=== PATIENT | female | born 1965 | race Caucasian/White ===

== ENCOUNTER 2017-05-04 11:24 | Emergency (ER) | payer SELFPAY ==
[~2017-05-04] VITALS: Ht 165.1 cm; Wt 69.1 kg
[~2017-05-04 11:24] MED LIST: VENL75TA91
[2017-05-04 11:25] VITALS: BP 160/84; PULSE 139; RESP 20; TEMP 103.1; O2SAT 98
--- NOTE | 2017-05-04 11:43 | PD ---
HPI Chief Complaint: Complaint Time Seen by Provider: 11:33 Travel History International Travel<30 days: No Contact w/Intl Traveler<30days: No Traveled to known affect area: No History of Present Illness HPI 52 YO F presents to the ED for evaluation of 5 day history of dysuria, fevers, back pain, nausea. Back pain rated 8/10. Improved by taking Azo, using the heating pad. Worsened by movements. Endorses loose stools, hematuria. Denies belly pain, vomiting. Denies risk of , states menopausal. Current smoker, 1PPD. PCP Dr. Dodge. [facility] Past Medical History Arthritis: No Asthma: No Blood Disorders: No Depression: Yes Heart Rhythm Problems: No Cancer: No Cardiovascular Problems: No High Cholesterol: No Chest Pain: No Congestive Heart Failure: No COPD: No Cerebrovascular Accident: No Diabetes: No Endocrine: No GERD: No Glaucoma: No Genitourinary: No Headaches: Yes Hepatitis: No Hiatal Hernia: No Hypertension: No Immune Disorder: No Kidney Stones: No Musculoskeletal: No Neurologic: No Reproductive: No Respiratory: No Migraines: Yes Renal Failure: No Seizures: No Sickle Cell Disease: No Sleep Apnea: No Thyroid Disease: No Ulcer: Yes Past Surgical History Abdominal Surgery: No AICD: No Appendectomy: No Cardiac Surgery: No Section: Yes (1998) Cholecystectomy: No Ear Surgery: No Endocrine Surgery: No Eye Surgery: No Genitourinary Surgery: No Gynecologic Surgery: Yes (hysterectomy) Hysterectomy: Yes (JUL 2003) Oral Surgery: No Pacemaker: No Thoracic Surgery: No Tonsillectomy: Yes Other Surgery: Yes (HYSTERECTOMY) Social History Alcohol Use: Yes (OCCAS.) Tobacco Use: Yes (1/2 PACK PER DAY) Substance Use: No Allergies-Medications (Allergen,Severity, Reaction): Coded Allergies: Sulfa (Sulfonamide Antibiotics) (Unverified Allergy, Severe, Swelling, ) Reported Meds & Prescriptions Reported Meds & Active Scripts Active Keflex (Cephalexin) 500 Mg Cap 500 Mg PO Q8H Reported Effexor (Venlafaxine HCl) 75 Mg Tab 75 Mg PO DAILY Review of Systems Except as stated in HPI: all other systems reviewed are Neg Physical Exam Narrative GENERAL: Well-nourished, well-developed nontoxic appearing white female in no acute distress. SKIN: Focused skin assessment warm/dry. HEAD: Normocephalic. EYES: No scleral icterus. No injection or drainage. NECK: Supple, trachea midline. No JVD or lymphadenopathy. CARDIOVASCULAR: Regular rate and rhythm without murmurs, gallops, or rubs. RESPIRATORY: Breath sounds equal bilaterally. No accessory muscle use. GASTROINTESTINAL: Abdomen soft, non-tender, nondistended. MUSCULOSKELETAL: No cyanosis, or edema. BACK: Nontender without obvious deformity. Positive left sided CVA tenderness. Data Data Last Documented VS Vital Signs Date Time Temp Pulse Resp B/P (MAP) Pulse Ox O2 Delivery O2 Flow Rate FiO2 05/04/17 13:05 98.5 05/04/17 12:00 116 20 96 Room Air Orders Orders Basic Metabolic Panel (Bmp) (05/04/17 11:44) Complete Blood Count With Diff (05/04/17 11:44) Urinalysis - C+S If Indicated (05/04/17 11:44) Iv Access Insert/Monitor (05/04/17 11:44) Ecg Monitoring (05/04/17 11:44) Oximetry (05/04/17 11:44) Ondansetron Inj (Zofran Inj) (05/04/17 11:45) Sodium Chlor 0.9% 1000 Ml Inj (Ns 1000 M (05/04/17 11:44) Sodium Chloride 0.9% Flush (Ns Flush) (05/04/17 11:45) Acetaminophen (Tylenol) (05/04/17 11:45) Urine Culture (05/04/17 12:00) Ceftriaxone Inj (Rocephin Inj) (05/04/17 12:45) Ketorolac Inj (Toradol Inj) (05/04/17 13:00) Sodium Chlorid 0.9% 500 Ml Inj (Ns 500 M (05/04/17 13:00) Ed Discharge Order (05/04/17 13:11) Labs Laboratory Tests Test 05/04/17 12:00 White Blood Count 8.4 TH/MM3 Red Blood Count 4.30 MIL/MM3 Hemoglobin 14.0 GM/DL Hematocrit 40.6 % Mean Corpuscular Volume 94.3 FL Mean Corpuscular Hemoglobin 32.7 PG Mean Corpuscular Hemoglobin Concent 34.6 % Red Cell Distribution Width 12.6 % Platelet Count 264 TH/MM3 Mean Platelet Volume 7.1 FL Neutrophils (%) (Auto) 91.4 % Lymphocytes (%) (Auto) 5.2 % Monocytes (%) (Auto) 2.8 % Eosinophils (%) (Auto) 0.4 % Basophils (%) (Auto) 0.2 % Neutrophils # (Auto) 7.7 TH/MM3 Lymphocytes # (Auto) 0.4 TH/MM3 Monocytes # (Auto) 0.2 TH/MM3 Eosinophils # (Auto) 0.0 TH/MM3 Basophils # (Auto) 0.0 TH/MM3 CBC Comment DIFF FINAL Differential Comment Urine Color YELLOW Urine Turbidity CLOUDY Urine pH 6.0 Urine Specific Mcrae 1.018 Urine Protein 100 mg/dL Urine Glucose (UA) 300 mg/dL Urine Ketones TRACE mg/dL Urine Occult Blood MOD Urine Nitrite POS Urine Bilirubin NEG Urine Urobilinogen LESS THAN 2.0 MG/DL Urine Leukocyte Esterase LARGE Urine RBC 70 /hpf Urine WBC /hpf Urine WBC Clumps MANY Urine Squamous Epithelial Cells 43 /hpf Urine Bacteria MOD /hpf Urine Mucus FEW /lpf Microscopic Urinalysis Comment CULTURE INDICATED Blood Urea Nitrogen 10 MG/DL Creatinine 1.25 MG/DL Random Glucose 116 MG/DL Calcium Level 9.1 MG/DL Sodium Level 137 MEQ/L Potassium Level 4.8 MEQ/L Chloride Level 104 MEQ/L Carbon Dioxide Level 23.0 MEQ/L Anion Gap 10 MEQ/L Estimat Glomerular Filtration Rate 45 ML/MIN [facility] Medical Decision Making Medical Screen Exam Complete: Yes Emergency Medical Condition: Yes Differential Diagnosis Cystitis versus pyelonephritis versus nephroureterolithiasis versus other Narrative Course 52-year-old female presents to the ED for evaluation of 5 day history of dysuria , fever, back pain, nausea. Patient states she is menopausal, denies risk of . Denies abdominal pain. Temp 103.1, pulse 139 on presentation. Physical exam reveals a nontoxic-appearing white female in no acute distress. Abdominal exam is completely benign. She does have left-sided CVA tenderness. Established. Patient was administered 1 L normal saline, 4 mg Zofran IV and 500 mg Tylenol by mouth. CBC: No leukocytosis noted. CMP: Creatinine 1.25, elevated from baseline of 0.8. UA: Cloudy, nitrite positive, large leukocyte esterase, innumerable WBCs, many wbc clumps, moderate bacteria. Culture pending. Patient was administered 1 g Rocephin, 0.5L NS and 30 mg of Toradol IV. Temp 98.5 HR 91 on recheck. This is pyelonephritis. Patient prescribed Keflex 500 mg three times a day 10 days. She is instructed to continue with OTC pain relievers as needed, follow- up with primary care. We discussed reasons to return to the ED. The patient and her indicated understanding of the discharge instructions and are agreeable to the care plan. The patient is stable and discharged home. Diagnosis Primary Impression: Pyelonephritis Referrals: Alejandra Dodge MD Patient Instructions: General Instructions, Kidney Infection (ED) Additional Instructions: Rest, hydrate. Continue with alternating Tylenol and Motrin as described on the label, as needed for fevers. Take all antibiotics as they're prescribed until the last pill is gone. Take antibiotics even if the symptoms resolve. Follow-up with Dr. Dodge as discussed.. Return to the ED for worsening symptoms or any urgent or emergent medical condition. Med/Other Pt SpecificInfo: Prescription(s) given Scripts Cephalexin (Keflex) 500 Mg Cap 500 MG PO Q8H for Infection, #30 CAP 0 Refills Prov: Esperanza Scales MD 05/04/17 Disposition: 01 DISCHARGE HOME Condition: Stable Italia Belcher May 04, 2017 11:43
[2017-05-04] MEDS ORDERED: SODIUM CHLOR 0.9% 1000 ML INJ 1,000 ML IV SCH (11:44)
[2017-05-04] MEDS ORDERED: SODIUM CHLORIDE 0.9% FLUSH 10 ML FLUSH IV FLUSH PRN (11:45)
[2017-05-04] MEDS ORDERED: ACETAMINOPHEN 325 MG TAB PO ONE (11:45)
[2017-05-04] MEDS ORDERED: ONDANSETRON HCL 4 MG/2 ML VIAL IVP ONE (11:45)
[2017-05-04] MEDS ORDERED: VENL75TA PO (11:52)
[2017-05-04 12:00] VITALS: BP 125/69; PULSE 116; RESP 20; TEMP 100.2; O2SAT 96
[2017-05-04 12:29] LABS: AUTOMATED NEUTROPHIL # 7.7 TH/MM3 (1.8-7.7); BASOPHIL % 0.2 % (0.0-2.0); EOSINOPHIL % 0.4 % (0.0-4.0); HEMATOCRIT 40.6 % (35.0-46.0); HEMO FLAGS DIFF FINAL; LYMPH % 5.2 % (9.0-44.0); LYMPHOCYTE # 0.4 TH/MM3 (1.0-4.8); MEAN CELL VOLUME 94.3 FL (80.0-100.0); MEAN CORPUSCULAR HEMOGLOBIN 32.7 PG (27.0-34.0); MEAN CORPUSCULAR HGB CONC 34.6 % (32.0-36.0); MONO % 2.8 % (0.0-8.0); NEUT % 91.4 % (16.0-70.0); PLATELET COUNT 264 TH/MM3 (150-450); RED CELL DISTRIBUTION WIDTH 12.6 % (11.6-17.2); WHITE BLOOD COUNT 8.4 TH/MM3 (4.0-11.0)
[2017-05-04 12:42] LABS: BACTERIA, URINE MOD /hpf; BLOOD, URINE MOD (NEG); COMMENT (UR) CULTURE INDICATED; CULTURE IF INDICATED CULTURE INDICATED; GLUCOSE,URINE 300 mg/dL (NEG); KETONE, URINE TRACE mg/dL (NEG); MUCUS URINE FEW /lpf (OCC); NITRITE,URINE POS (NEG); SQUAMOUS EPITHELIAL CELL URINE 43 /hpf (0-5); URINE COLOR YELLOW (YELLW/STRAW)
[2017-05-04] MEDS ORDERED: cefTRIAXone INJ 1,000 MG in SODIUM CHLORIDE 0.9% INJ 100 ML IV ONE (12:45)
[2017-05-04 12:46] LABS: POTASSIUM 4.8 MEQ/L (3.5-5.1)
[2017-05-04] MEDS ORDERED: CIPR-9 PO (12:54)
[2017-05-04] MEDS ORDERED: SODIUM CHLORID 0.9% 500 ML INJ 500 ML IV ONE (13:00)
[2017-05-04] MEDS ORDERED: KETOROLAC TROMETHAMINE 30 MG/ML (IVP) VIAL IV PUSH ONE (13:00)
[2017-05-04 13:05] VITALS: TEMP 98.5
[2017-05-04] MEDS ORDERED: CEPH-460 PO (13:10)
--- NOTE | 2017-05-04 13:20 | PD ---
Data Data Last Documented VS Vital Signs Date Time Temp Pulse Resp B/P (MAP) Pulse Ox O2 Delivery O2 Flow Rate FiO2 05/04/17 13:05 98.5 05/04/17 12:00 116 20 96 Room Air Orders Orders Basic Metabolic Panel (Bmp) (05/04/17 11:44) Complete Blood Count With Diff (05/04/17 11:44) Urinalysis - C+S If Indicated (05/04/17 11:44) Iv Access Insert/Monitor (05/04/17 11:44) Ecg Monitoring (05/04/17 11:44) Oximetry (05/04/17 11:44) Ondansetron Inj (Zofran Inj) (05/04/17 11:45) Sodium Chlor 0.9% 1000 Ml Inj (Ns 1000 M (05/04/17 11:44) Sodium Chloride 0.9% Flush (Ns Flush) (05/04/17 11:45) Acetaminophen (Tylenol) (05/04/17 11:45) Urine Culture (05/04/17 12:00) Ceftriaxone Inj (Rocephin Inj) (05/04/17 12:45) Ketorolac Inj (Toradol Inj) (05/04/17 13:00) Sodium Chlorid 0.9% 500 Ml Inj (Ns 500 M (05/04/17 13:00) Ed Discharge Order (05/04/17 13:11) Labs Laboratory Tests Test 05/04/17 12:00 White Blood Count 8.4 TH/MM3 Red Blood Count 4.30 MIL/MM3 Hemoglobin 14.0 GM/DL Hematocrit 40.6 % Mean Corpuscular Volume 94.3 FL Mean Corpuscular Hemoglobin 32.7 PG Mean Corpuscular Hemoglobin Concent 34.6 % Red Cell Distribution Width 12.6 % Platelet Count 264 TH/MM3 Mean Platelet Volume 7.1 FL Neutrophils (%) (Auto) 91.4 % Lymphocytes (%) (Auto) 5.2 % Monocytes (%) (Auto) 2.8 % Eosinophils (%) (Auto) 0.4 % Basophils (%) (Auto) 0.2 % Neutrophils # (Auto) 7.7 TH/MM3 Lymphocytes # (Auto) 0.4 TH/MM3 Monocytes # (Auto) 0.2 TH/MM3 Eosinophils # (Auto) 0.0 TH/MM3 Basophils # (Auto) 0.0 TH/MM3 CBC Comment DIFF FINAL Differential Comment Urine Color YELLOW Urine Turbidity CLOUDY Urine pH 6.0 Urine Specific [place] 1.018 Urine Protein 100 mg/dL Urine Glucose (UA) 300 mg/dL Urine Ketones TRACE mg/dL Urine Occult Blood MOD Urine Nitrite POS Urine Bilirubin NEG Urine Urobilinogen LESS THAN 2.0 MG/DL Urine Leukocyte Esterase LARGE Urine RBC 70 /hpf Urine WBC /hpf Urine WBC Clumps MANY Urine Squamous Epithelial Cells 43 /hpf Urine Bacteria MOD /hpf Urine Mucus FEW /lpf Microscopic Urinalysis Comment CULTURE INDICATED Blood Urea Nitrogen 10 MG/DL Creatinine 1.25 MG/DL Random Glucose 116 MG/DL Calcium Level 9.1 MG/DL Sodium Level 137 MEQ/L Potassium Level 4.8 MEQ/L Chloride Level 104 MEQ/L Carbon Dioxide Level 23.0 MEQ/L Anion Gap 10 MEQ/L Estimat Glomerular Filtration Rate 45 ML/MIN MDM Supervised Visit with GREGG: Yes Narrative Course The history, exam, and medical decision-making in the associated midlevel provider note were completed with my assistance. I reviewed and agree with the findings presented. I attest that I had a [id number] encounter with the patient on the same day, and personally performed and documented my assessment and findings in the medical record. *My assessment and Findings: This is a 52-year-old female who presents to the emergency department with dysuria, back pain, fevers and chills. She has a urinary tract infection on exam. Her symptoms suggest pyelonephritis. She is nontoxic appearing. She is given a dose of IV antibiotics and will be discharged on ciprofloxacin. She was advised to return to the emergency department if she feels that all worse. Diagnosis Primary Impression: Pyelonephritis Patient Instructions: General Instructions, Kidney Infection (ED) Additional Instruction: Rest, hydrate. Continue with alternating Tylenol and Motrin as described on the label, as needed for fevers. Take all antibiotics as they're prescribed until the last pill is gone. Take antibiotics even if the symptoms resolve. Follow-up with Dr. Dodge as discussed.. Return to the ED for worsening symptoms or any urgent or emergent medical condition. Scripts Cephalexin (Keflex) 500 Mg Cap 500 MG PO Q8H for Infection, #30 CAP 0 Refills Prov: Esperanza Scales MD 05/04/17 Disposition: 01 DISCHARGE HOME Condition: Stable Esperanza Scales MD May 04, 2017 13:20
== END 2017-05-04 14:42 | disposition home or self-care (01) ==
LOC: NEPE 11:24
DX: N12 Tubulo-interstitial nephritis, not specified as acute or chronic (principal); B96.89 Other specified bacterial agents as the cause of diseases classified elsewhere; R11.0 Nausea; F32.9 Major depressive disorder, single episode, unspecified; F17.200 Nicotine dependence, unspecified, uncomplicated; Z88.2 Allergy status to sulfonamides
CPT/HCPCS: 80048; 81001; 85025; 87077; 87086; 87186; 96361; 96365; 96375; 99284; J0696; J1885; J2405; J7030; J7040